=== PATIENT | male | born 1995 | race Caucasian/White ===

== ENCOUNTER 2023-11-20 08:44 | Emergency (ER) | payer OTHER ==
[~2023-11-20] VITALS: Ht 177.8 cm; Wt 81.0 kg
[2023-11-20] MEDS ORDERED: BUPR75TA5 PO (08:59)
[2023-11-20 11:13] VITALS: BP 157/93; TEMP 98.2; O2SAT 99
[2023-11-20] MEDS ORDERED: PRED10TA2 PO (11:29)
[2023-11-20] MEDS ORDERED: AMOX875T2 PO (11:29)
== END 2023-11-20 11:48 | disposition home or self-care (01) ==
LOC: M ED 08:44
DX: G50.1 Atypical facial pain (principal); R68.84 Jaw pain; K11.8 Other diseases of salivary glands; F17.200 Nicotine dependence, unspecified, uncomplicated; F41.9 Anxiety disorder, unspecified; Z79.2 Long term (current) use of antibiotics; Z79.52 Long term (current) use of systemic steroids; Z79.899 Other long term (current) drug therapy